=== PATIENT | male | born 1995 | race Caucasian/White ===

== ENCOUNTER 2019-11-16 11:47 | Emergency (ER) | payer BC ==
[~2019-11-16] VITALS: Ht 172.7 cm; Wt 65.0 kg
[2019-11-16 11:53] VITALS: BP 121/66
--- NOTE | 2019-11-16 12:04 | NUR ---
PT REPORTS "SCABTHAT HAS FLOWERED OPEN" ON PENIS. DENIES DRAINAGE.
[2019-11-16] MEDS ORDERED: DOXY100C76 PO (12:05)
== END 2019-11-16 12:30 | disposition home or self-care (01) ==
LOC: ER 11:48
DX: A53.9 Syphilis, unspecified (principal); B00.9 Herpesviral infection, unspecified; Z79.899 Other long term (current) drug therapy
CPT/HCPCS: 99283